=== PATIENT | female | born 1985 | race Native Hawaiian/Other Pacific Islander ===

== ENCOUNTER 2020-01-02 13:12 | Emergency (ER) | payer OTHER, SELFPAY ==
[2020-01-02 13:27] VITALS: BP 117/71; PULSE 64; RESP 14; TEMP 36.9; O2SAT 100; BMI 25.8
--- NOTE | 2020-01-02 13:33 | DI.RAD.S_ITS ---
PROCEDURE: XR RIBS RT MIN 3V W CXR 1V INDICATIONS: eval for Fx rib TECHNIQUE: 3 views of the right ribs were acquired, along with a single view chest. COMPARISON: None. FINDINGS: Surgical changes and devices: None. Bones and chest wall: No fractures or dislocations. No suspicious bony lesions. Overlying soft tissues appear unremarkable. Lungs and pleura: No pleural effusions or pneumothorax. Lungs appear clear. Mediastinum: Mediastinal contours appear normal. Heart size is normal. IMPRESSION: Chest without acute cardiopulmonary abnormalities. No acute rib fractures identified. Dictated by: El Bonds M.D. on 01/02/2020 at 13:06 Approved by: El Bonds M.D. on 01/02/2020 at 13:08
--- NOTE | 2020-01-02 13:33 | DI.RAD.S_ITS ---
PROCEDURE: XR KNEE LT 3V INDICATIONS: pain after fall TECHNIQUE: 3 views of the knee were acquired. COMPARISON: [facility], , KNEE 3V LEFT, 08/17/2014, 12:06. FINDINGS: Bones: No fractures or dislocations. No suspicious bony lesions. Soft tissues: No joint effusion. No suspicious soft tissue calcifications. IMPRESSION: Left knee without acute osseous abnormalities or dislocation. Dictated by: El Bonds M.D. on 01/02/2020 at 13:05 Approved by: El Bonds M.D. on 01/02/2020 at 13:06
--- NOTE | 2020-01-02 14:36 | ED.GENADULT ---
HPI - General Adult General Chief complaint: Extremity Injury, Upper Stated complaint: Poss broken rib/ tear on Lt knee Time Seen by Provider: 01/02/20 13:23 Source: patient Mode of arrival: Ambulatory Limitations: no limitations History of Present Illness HPI narrative: 34-year-old female here for evaluation of right posterior rib pain and also left knee pain. Patient states the end of last week she was participating in martial arts training when she sustained an injury to her right ribs and left knee. She states the symptoms have worsened over the past couple days. She denies any chest pain or problems breathing or fevers or coughing. She is stable to ambulate. She denies any unsteadiness to her left knee. No other injuries reported from the event. Has not tried anything for symptoms prior to arrival. Review of Systems Constitutional Constitutional: Denies fever(s) and Denies headache(s) ENT Ears, Nose, Mouth, and Throat: Denies headache(s) Cardiovascular Cardiovascular: Denies chest pain and Denies dyspnea Respiratory Respiratory: Denies cough and Denies dyspnea Comments: Right posterior rib pain Gastrointestinal Gastrointestinal: Denies nausea and Denies vomiting Musculoskeletal Comments: Left knee pain Integumentary/Breasts Skin/Breast: Denies lesions and Denies rash Neurologic Neurologic: Denies behavioral changes and Denies headache(s) Psychiatric Psychiatric: Denies behavioral changes Hematologic/Lymphatic Hematologic/Lymphatic: Denies easy bleeding and Denies easy bruising Patient History Medical History Healthy adult (Acute) Social History Smoking Status: Former smoker Smoking Status: Former smoker alcohol intake frequency: 0-2 drinks per day Substance Use Type: does not use Exam Initial Vital Signs Initial Vital Signs: Vital Signs Temperature 98.5 F 01/02/20 13:27 Pulse Rate 64 01/02/20 13:27 Respiratory Rate 14 01/02/20 13:27 Blood Pressure 117/71 01/02/20 13:27 Pulse Oximetry 100 01/02/20 13:27 Const General: cooperative, comfortable and well developed Limitations: mental status not altered HENMT Head: normal to inspection and normocephalic Chest Other: Patient does have relatively pinpoint tenderness to palpation on the posterior lower ribs in the right without crepitus. Resp Effort & Inspection: normal respiratory effort Auscultation: clear to auscultation bilaterally Cardio Rate: regular rate Rhythm: regular rhythm Skin Lesions: no lesions Rashes: no rashes Neuro General: patient alert, patient awake and patient oriented x3 Cognition: normal cognition Speech: speech normal Extrem General: capillary refill normal Other: Left leg: ACL MCL PCL and LCL intact functional testing. Patient able to do straight leg raise. She is ambulatory. No tenderness over the patellar quadriceps tendon. No tenderness over the hamstring tendon. She is tender along the medial joint line. Psych Appearance: grossly normal and well kempt Procedures Orthopedic Splinting/Casting Injury #1: Side: left Lower Extremity Injury Location: knee Lower Extremity Immobilizer: Aba wrap Post splinting neuro exam: intact Post splinting vascular exam: intact Placed by: Nursing Course Orders Ordered: ED Orders 01/02/20 13:33 XR knee LT 3V Stat XR ribs RT min 3V w CXR1V Stat Vital Signs Vital signs: Vital Signs - 8 hr 01/02/20 13:27 Temperature 98.5 F Pulse Rate 64 Respiratory Rate 14 Blood Pressure 117/71 Pulse Oximetry 100 Medical Decision Making Imaging Data Extremity x-ray #1: Radiologist's Impression: [address] [address] XRay Report Signed Patient: Emmanuelle aRmirez [facility]#: [id number] : 1985Acct:[id number] Age/Sex: 34 / FDate of Service: 01/02/20 Loc: ED Accession Number: [id number] Procedure: XR knee LT 3V Ordering Provider: Krishna Villagran D.O. PROCEDURE: XR KNEE LT 3V INDICATIONS: pain after fall TECHNIQUE: 3 views of the knee were acquired. COMPARISON: [facility], , KNEE 3V LEFT, 08/17/2014, 12:06. FINDINGS: Bones: No fractures or dislocations. No suspicious bony lesions. Soft tissues: No joint effusion. No suspicious soft tissue calcifications. IMPRESSION: Left knee without acute osseous abnormalities or dislocation. Dictated by: El Bonds M.D. on 01/02/2020 at 13:05 Approved by: El Bonds M.D. on 01/02/2020 at 13:06 X-ray ribs: Radiologist's Impression: [address] [place] [address] XRay Report Signed Patient: Emmanuelle Ramirez [facility]#: [id number] : 1985Acct:[id number] Age/Sex: 34 / FDate of Service: 01/02/20 Loc: ED Accession Number: [id number] Procedure: XR ribs RT min 3V w CXR1V Ordering Provider: Krishna Villagran D.O. PROCEDURE: XR RIBS RT MIN 3V W CXR 1V INDICATIONS: eval for Fx rib TECHNIQUE: 3 views of the right ribs were acquired, along with a single view chest. COMPARISON: None. FINDINGS: Surgical changes and devices: None. Bones and chest wall: No fractures or dislocations. No suspicious bony lesions. Overlying soft tissues appear unremarkable. Lungs and pleura: No pleural effusions or pneumothorax. Lungs appear clear. Mediastinum: Mediastinal contours appear normal. Heart size is normal. IMPRESSION: Chest without acute cardiopulmonary abnormalities. No acute rib fractures identified. Dictated by: El Bonds M.D. on 01/02/2020 at 13:06 Approved by: El Bonds M.D. on 01/02/2020 at 13:08 [facility] Narrative Medical decision making narrative: Rib x-rays are negative. No signs of fracture. Underlying lung unremarkable. She is not in respiratory distress. Lungs are clear. She does have relatively pinpoint tenderness to the right posterior ribs without crepitus. I did discuss this with the patient. Did discuss that there potentially could be a fracture that was nondisplaced. We did discuss return precautions regarding this. Her left knee exam is positive for tenderness along the medial joint line. I feel there is a low suspicion for major ligament damage. She potentially could have a medial meniscus injury. There are no fractures on the x-ray. She was placed in an Aba bandage for comfort. She was given return precautions and follow-up instructions. She expressed understanding and agreement. Discharge Plan Departure Patient Disposition: Home Clinical Impression: Rib pain on right side Left knee sprain Qualifiers: Encounter type: initial encounter Involved ligament of knee: unspecified ligament Qualified Code(s): S83.92XA - Sprain of unspecified site of left knee, initial encounter Instructions: DI for Knee Sprain, How to Apply an Elastic Wrap on Knee Activity Restrictions/Additional Instructions: You have no restrictions on your activities. Contact your primary provider for follow-up. Return to the emergency department for any new or worsening symptoms Referrals: Lou Parry FNP-C [Primary Care Provider] -
== END 2020-01-02 15:02 | disposition home or self-care (01) ==
PROVIDERS: Emergency Provider Emergency Medicine; Family Provider Nurse Practitioner Family; PCP Nurse Practitioner Family
DX: R07.81 Pleurodynia (principal); S83.92XA Sprain of unspecified site of left knee, initial encounter; Y93.75 Activity, martial arts
CPT/HCPCS: 71101; 73562; 99282; 99283

== ENCOUNTER → 2020-05-15 13:15 | Outpatient (CLI) | payer OTHER, SELFPAY ==
[2020-05-15 17:39] LABS: COVID19 -Nasal RAPID Negative (Negative)
== END ==
PROVIDERS: Family Provider Nurse Practitioner Family; PCP Nurse Practitioner Family; Visit Provider Physician Assistant
DX: Z20.822 Contact with and (suspected) exposure to COVID-19 (principal)
CPT/HCPCS: 87635

== ENCOUNTER 2020-05-17 11:45 | Day surgery (SDC) | payer OTHER, SELFPAY ==
[2020-05-17] VITALS (7 sets, daily range): BP systolic 90–121; BP diastolic 58–79; PULSE 63–84; RESP 12–16; TEMP 36.1–36.6; O2SAT 95–98; BMI 27.3
--- NOTE | 2020-05-17 | PATH_ITS ---
[place] Accession Number: [id number] . 01 Material submitted: . body - RANDOM BIOPSIES . 02 Diagnosis: Random Colon, Biopsies: Colonic mucosa with no diagnostic abnormality. Negative for active, chronic, and microscopic colitis. Negative for dysplasia and malignancy. . MRV 05/22/2020 0959 Local . 02 Electronically signed: . Von Aparicio MD, PhD, Pathologist NPI- [id number] . 01 Gross description: . RANDOM BIOPSIES: Received in formalin are multiple fragment(s) of styles, soft tissue measuring 0.1 x 0.1 x 0.1 cm to 0.3 x 0.2 x 0.2 cm submitted entirely in 1 cassette(s) /ERIC 05/19/2020 2318 Local . 02 Pathologist provided ICD-10: R19.7, K62.5 . 02 CPT . 117997 Performed at: 01 [facility] [address] [facility], [place], [place] [id number] MD Dwight Hackett MD Phone: [phone] Performed at: 02 [facility] [address] [place], [place] [id number] MD Amber Reich MD Phone: [phone]
[2020-05-17] MEDS: SODIUM CHLORIDE 0.9% 1,000 ML 100 ML IV (12:33)
--- NOTE | 2020-05-17 12:33 | PM.HP.1 ---
History of Present Illness History of Present Illness Date Patient Seen: 05/17/20 Chief complaint: SDC Narrative: Chronic diarrhea and rectal bleeding Patient History Medical History (Updated 01/17/20 @ 00:00 by ) Healthy adult Family & Social History Social History: household members spouse Tobacco & Substance use: Tobacco type cigarettes Smoking Status Former smoker alcohol intake current alcohol intake frequency holiday/special occasion Substance Use Type does not use Meds Home Medications and Allergies Allergies Allergy/AdvReac Type Severity Reaction Status Date / Time No Known Drug Allergies Allergy Verified 05/17/20 12:23 Exam Vital Signs (past 8 hours): - 05/17/20 12:25 Temperature 97.7 F Pulse Rate 84 Respiratory Rate 14 Blood Pressure 121/79 Pulse Oximetry 98 Oxygen Delivery Method Room Air Narrative Exam Narrative: Oropharynx free of lesions Chest clear to auscultation percussion Cardiac exam reveals no S3 or murmur Assessment & Plan Assessment & Plan narrative: Chronic diarrhea and rectal bleeding, rule out underlying colitis. Risks, benefits, alternatives have been explained.
--- NOTE | 2020-05-17 12:34 | PM.OP.ENDO ---
Operative Date/Time/Diagnoses Date of procedure: 05/17/20 Pre-op diagnosis: See indication and findings Procedure & Clinicians Study performed: Colonoscopy Same procedure as scheduled: Yes Indications: Chronic diarrhea and rectal bleeding Surgeon: Aby Villarreal Procedure Notes Procedure in detail: After informed consent was obtained the patient was placed in left lateral decubitus position. The video colonoscope was introduced the rectum slowly advanced to cecum where the IC valve was identified and intubated.. On slow withdrawal mucosa was carefully examined. The scope was removed. The patient tolerated procedure well. Preparation was good. Blood loss none Complications none Sedation Total sedation time 20 minutes Versed 9 mg fentanyl 200 mg IV titration Findings 1. Normal terminal ileum 2. Normal colonoscopy to cecum. Random biopsies taken to rule out microscopic colitis. Patient should have follow-up telehealth in the office to go over biopsies and decide on next steps.
[2020-05-17] MEDS: fentaNYL 250 MCG/5 ML INJ IV (12:55)
[2020-05-17] MEDS: MIDAZOLAM 5 MG/5 ML VIAL IV (12:56)
== END 2020-05-17 13:50 | disposition home or self-care (01) ==
PROVIDERS: Family Provider Nurse Practitioner Family; PCP Nurse Practitioner Family; Referring Provider Internal Medicine Gastroenterology; Visit Provider Internal Medicine Gastroenterology
PROC: 0DJD8ZZ Inspection of Lower Intestinal Tract, Via Natural or Artificial Opening Endoscopic (ICD-10-PCS; CPT 45378; principal; 2020-05-17 13:00)
DX: K62.5 Hemorrhage of anus and rectum (principal); R19.7 Diarrhea, unspecified
CPT/HCPCS: 45380; J2250; J3010

== ENCOUNTER 2024-02-15 10:16 | Emergency (ER) | payer OTHER, SELFPAY ==
[2024-02-15 10:25] VITALS: BP 114/76; PULSE 60; RESP 18; TEMP 36.8; O2SAT 100; BMI 28.0
--- NOTE | 2024-02-15 11:13 | ED.SKABFB ---
HPI - Skin/Abscess/Foreign Bdy <Yamila Orantes PA-C - Last Filed: 02/15/24 13:21> General Chief complaint: Skin/Abscess/Foreign Body Stated complaint: poss absess left glute, fever, nausea Time Seen by Provider: 02/15/24 10:54 Source: patient Mode of arrival: Ambulatory Limitations: no limitations History of Present Illness HPI narrative: Ms. Ramirez is a very pleasant 38-year-old female with a past medical history of abdominoplasty 2 years ago and hemorrhoids who presents to the emergency department for left-sided rectal pain x1 week. Patient states over the last week she is noticed pain and swelling on the left side of her anus. States over the last 3 days his pain has gotten more severe and is extremely painful whenever sitting or having a bowel movement. Reports subjective fevers and nausea. She occasionally has some left lower quadrant or right upper quadrant abdominal pain as well. Reports she can feel ?a golf ball? sized lump on the left side of her anus. Denies any prior history rectal abscess or drainage. Denies chest pain, shortness of breath, vomiting, dysuria, hematuria, diarrhea, constipation, melena, hematochezia. Her is with her and contributes to the history. Related Data Previous Rx's Medication Instructions Recorded amoxicillin 875 mg-potassium 1 tab PO Q12H 10 days #20 tabs 02/15/24 clavulanate 125 mg tablet ondansetron 4 mg disintegrating 4 mg PO Q8H PRN nausea and 02/15/24 tablet vomiting #14 tabs Allergies Allergy/AdvReac Type Severity Reaction Status Date / Time No Known Drug Allergies Allergy Verified 08/17/20 11:38 Review of Systems <Yamila Orantes PA-C - Last Filed: 02/15/24 13:21> Review of Systems ROS Unobtainable: All systems reviewed & are unremarkable except as noted in HPI and below Patient History <Yamila Orantes PA-C - Last Filed: 02/15/24 13:21> Medical History Healthy adult Social History household members: spouse Smoking Status: Former smoker alcohol intake: current Smoking Status: Former smoker alcohol intake frequency: holidays/special occasions only Alcohol type: wine Exam <Yamila Orantes PA-C - Last Filed: 02/15/24 13:21> Narrative Exam Narrative: GENERAL: 38 year old patient appears stated age. Well-developed patient, in no acute distress. Pain with sitting in stretcher. NECK: Trachea midline. Cervical ROM intact. CARDIOVASCULAR: Regular rate and rhythm. RESPIRATORY: ?Nonlabored respirations. ?Speaking in clear, full sentences. ?Clear to auscultation. Breath sounds equal bilaterally. No wheezes, rales, or rhonchi. ? GASTROINTESTINAL: Abdomen soft, non-tender, nondistended. Normal bowel sounds. Lower abdominal prior abdominoplasty scar. Patient gave verbal consent for external rectal exam. Female nurse sales coordinator present. On the left gluteal cleft there is mild erythema. There is tenderness to palpation of the left side of the anus with palpable fullness / induration approximately 2-3 cm below the skin. No obvious swelling on visualization. No fluctuance. No bleeding or hemorrhoids. EXTREMITIES: No edema or joint tenderness. BACK: Nontender without deformity or crepitance. No flank tenderness. NEURO: AOx3. ?Clear speech. ?Moves all 4 extremities appropriately. Initial Vital Signs Initial Vital Signs: Vital Signs Temperature 98.2 F 02/15/24 10:25 Pulse Rate 60 02/15/24 10:25 Respiratory Rate 18 02/15/24 10:25 Blood Pressure 114/76 02/15/24 10:25 Pulse Oximetry 100 02/15/24 10:25 Oxygen Delivery Method Room Air 02/15/24 10:25 <oT Ornelas MD - Last Filed: 02/15/24 20:03> Initial Vital Signs Initial Vital Signs: Vital Signs Temperature 98.2 F 02/15/24 10:25 Pulse Rate 60 02/15/24 10:25 Respiratory Rate 18 02/15/24 10:25 Blood Pressure 114/76 02/15/24 10:25 Pulse Oximetry 100 02/15/24 10:25 Oxygen Delivery Method Room Air 02/15/24 10:25 Course <Yamila Orantes PA-C - Last Filed: 02/15/24 13:21> Orders Ordered: ED Orders 02/15/24 11:24 CT abdomen pelvis w con Stat 02/15/24 11:30 Complete Blood Count AUTO DIFF Stat Comprehensive Metabolic Panel Stat Lipase Stat Discontinued Medications Amoxicillin/Clavulanate Potassium (Amoxicillin/Clav 875/125 Mg) 1 tab PO NOW ONE Stop: 02/15/24 13:13 Last Admin: 02/15/24 13:27 Dose: 1 tab Documented By: HA Ketorolac Tromethamine (Ketorolac 30 Mg/Ml Vial) 15 mg IV NOW ONE Stop: 02/15/24 11:24 Last Admin: 02/15/24 11:51 Dose: 15 mg Documented By: PERRY Ondansetron HCl (Ondansetron 4 Mg/2 Ml Inj) 4 mg IV NOW ONE Stop: 02/15/24 11:24 Last Admin: 02/15/24 11:50 Dose: 4 mg Documented By: PERRY Consultations Consultation #1: Discussed case with general surgeon Dr. Ornelas while he was in the ED. patient has not yet gone for her CT scan but he recommends I and D close to the anus if abscess, Augmentin, follow up outpatient. I will plan to call him if any signs of concern on the CT. Time: 12:21 Vital Signs Vital signs: Vital Signs - 8 hr 02/15/24 13:33 Pulse Rate 68 Respiratory Rate 18 Blood Pressure 108/71 Pulse Oximetry 99 Oxygen Delivery Method Room Air <To Ornelas MD - Last Filed: 02/15/24 20:03> Orders Ordered: ED Orders 02/15/24 11:24 CT abdomen pelvis w con Stat 02/15/24 11:30 Complete Blood Count AUTO DIFF Stat Comprehensive Metabolic Panel Stat Lipase Stat Discontinued Medications Amoxicillin/Clavulanate Potassium (Amoxicillin/Clav 875/125 Mg) 1 tab PO NOW ONE Stop: 02/15/24 13:13 Last Admin: 02/15/24 13:27 Dose: 1 tab Documented By: HA Ketorolac Tromethamine (Ketorolac 30 Mg/Ml Vial) 15 mg IV NOW ONE Stop: 02/15/24 11:24 Last Admin: 02/15/24 11:51 Dose: 15 mg Documented By: PERRY Ondansetron HCl (Ondansetron 4 Mg/2 Ml Inj) 4 mg IV NOW ONE Stop: 02/15/24 11:24 Last Admin: 02/15/24 11:50 Dose: 4 mg Documented By: PERRY Vital Signs Vital signs: Vital Signs - 8 hr 02/15/24 13:33 Pulse Rate 68 Respiratory Rate 18 Blood Pressure 108/71 Pulse Oximetry 99 Oxygen Delivery Method Room Air MDM - Skin/Abscess/Foreign Bdy <Yamila Orantes PA-C - Last Filed: 02/15/24 13:21> Medical Records Attestation: I reviewed the patient's medical records. Lab Data 02/15/24 11:30 02/15/24 11:30 Labs: Lab Results 02/15/24 Range/Units 11:30 WBC 9.3 (4.5-11.0) X10^3/uL RBC 4.17 (4.0-5.2) X10^6/uL Hgb 13.0 (12.0-16.0) g/dL Hct 37.9 (36-46) % MCV 90.9 (80-100) fL MCH 31.1 (26-34) PG MCHC 34.2 (30-36) % RDW 12.4 (11.6-14.8) % Plt Count 226 (150-400) X10^3/uL Neut % (Auto) 60.3 (50-75) % Lymph % (Auto) 28.9 (25-40) % Greer % (Auto) 7.4 (3-14) % Eos % (Auto) 2.0 (2-4) % Baso % (Auto) 1.4 (0-2) % Neut # (Auto) 5600 (3615-0125) /uL Lymph # (Auto) 2700 (6491-8812) /uL Greer # (Auto) 700 (0-900) /uL Eos # (Auto) 200 (0-450) /uL Baso # (Auto) 100 (0-100) /uL Sodium 139 (137-145) mmol/L Potassium 3.6 (3.4-5.1) mmol/L Chloride 107 (98-107) mmol/L Carbon Dioxide 25 (22-32) mmol/L BUN 9 (7-17) mg/dL Creatinine 0.82 (0.52-1.04) mg/dL Estimated GFR > 60 (>60) mL/min BUN/Creatinine Ratio 11.0 (6-22) Glucose 97 (70-100) mg/dL Calcium 9.0 (8.4-10.2) mg/dL Total Bilirubin 0.6 (0.2-1.3) mg/dL AST 24 (14-36) IU/L ALT 21 (<35) IU/L Alkaline Phosphatase 64 (38-126) U/L Total Protein 7.4 (6.3-8.2) g/dL Albumin 4.3 (3.5-5.0) g/dL Globulin 3.1 (1.7-4.1) g/dL Albumin/Globulin Ratio 1.4 (1.0-2.8) Lipase 29 (23-300) U/L [facility] Narrative Medical decision making narrative: 38-year-old female with a past medical history of abdominoplasty 2 years ago and hemorrhoids who presents to the emergency department for left-sided rectal pain x1 week. Differential diagnosis includes but is not limited to perirectal abscess, gluteal abscess, rectal fistula, diverticulitis, etc. On exam the patient is in no acute distress, nontoxic-appearing, all vital signs within normal limits. Pulse 60 beats per minute O2 100% on room air and temperature 98.2?. She reports subjective feelings of warmth but no documented fever. Physical exam reveals erythema and tenderness to palpation of the left side of the anus with palpable fullness below the skin concerning for a perirectal/perianal abscess. No obvious swelling or cutaneous abscess visible on visualization, only with palpation. Abdomen overall soft and nontender but she does have subjective left lower quadrant and right upper quadrant pain with no reproducible tenderness. We will proceed with abdominal labs and CT abdomen pelvis with IV contrast to further evaluate potential perirectal abscess. We will treat pain with Toradol and nausea with Zofran. Discussed case with general surgeon in the ED who recommended I and D if abscess formation on CT and Augmentin antibiotics. HCG neg. WBC count normal 9.3. Hemoglobin 13.0 hematocrit 37.9. Normal electrolytes and renal function. Normal LFTs. CT abdomen pelvis with IV contrast reveals focal inflammatory change adjacent to the anus on the left which is attributed to advanced cellulitis. Negative for perianal abscess. We will treat perianal cellulitis with Augmentin b.i.d. times 10 days. No abscess on CT or obvious abscess on exam to drain at this time. Recommended warm compress, Sitz baths, antibiotics, Tylenol, ibuprofen. Recommended follow up with PCP with future plans for GI/colonoscopy. Patient verbalized understanding of all information and is stable for discharge home. We discussed very strict ER return precautions. <To Ornelas MD - Last Filed: 02/15/24 20:03> Lab Data Labs: Lab Results 02/15/24 Range/Units 11:30 WBC 9.3 (4.5-11.0) X10^3/uL RBC 4.17 (4.0-5.2) X10^6/uL Hgb 13.0 (12.0-16.0) g/dL Hct 37.9 (36-46) % MCV 90.9 (80-100) fL MCH 31.1 (26-34) PG MCHC 34.2 (30-36) % RDW 12.4 (11.6-14.8) % Plt Count 226 (150-400) X10^3/uL Neut % (Auto) 60.3 (50-75) % Lymph % (Auto) 28.9 (25-40) % Greer % (Auto) 7.4 (3-14) % Eos % (Auto) 2.0 (2-4) % Baso % (Auto) 1.4 (0-2) % Neut # (Auto) 5600 (9342-8083) /uL Lymph # (Auto) 2700 (2845-9585) /uL Greer # (Auto) 700 (0-900) /uL Eos # (Auto) 200 (0-450) /uL Baso # (Auto) 100 (0-100) /uL Sodium 139 (137-145) mmol/L Potassium 3.6 (3.4-5.1) mmol/L Chloride 107 (98-107) mmol/L Carbon Dioxide 25 (22-32) mmol/L BUN 9 (7-17) mg/dL Creatinine 0.82 (0.52-1.04) mg/dL Estimated GFR > 60 (>60) mL/min BUN/Creatinine Ratio 11.0 (6-22) Glucose 97 (70-100) mg/dL Calcium 9.0 (8.4-10.2) mg/dL Total Bilirubin 0.6 (0.2-1.3) mg/dL AST 24 (14-36) IU/L ALT 21 (<35) IU/L Alkaline Phosphatase 64 (38-126) U/L Total Protein 7.4 (6.3-8.2) g/dL Albumin 4.3 (3.5-5.0) g/dL Globulin 3.1 (1.7-4.1) g/dL Albumin/Globulin Ratio 1.4 (1.0-2.8) Lipase 29 (23-300) U/L Discharge Plan Departure Patient Disposition: Home Clinical Impression: Cellulitis of perianal area, Perianal pain Instructions: DI for Cellulitis -- Adult Activity Restrictions/Additional Instructions: Dear Ms. Ramirez, Today you were evaluated for left-sided perianal pain. Your lab work is reassuring. Your CT scan shows focal inflammatory change adjacent to the anus on the left which is attributed to advanced cellulitis. Negative for perianal abscess. I have sent 10 days of antibiotics to your pharmacy. I have also sent nausea medicine if needed. Please complete the full course of antibiotics. Please use warm compresses and Sitz baths to help. Keep the area clean, dry. Please take Ibuprofen (Motrin/Advil) or Acetaminophen (Tylenol) for pain. These are available over the counter. You may take Ibuprofen 600 mg every 8 hours with food for pain. You may also take Acetaminophen 650 mg every 4-6 hours for pain. Do not exceed 3000 mg of Tylenol a day as this can cause liver damage. Do not drink alcohol with either of these medications. Please follow up with your primary care doctor who may recommend further evaluation by GI or General surgery for colonoscopy. Please, if your symptoms do not improve in the next 48 hours or if they worsen return to the ER immediately for repeat evaluation. Please follow up with your primary care doctor within the next 2-3 days for ER follow-up. (If you do not have a PCP you can call [phone]. ?to schedule an appointment with an [facility] Primary Care Provider) IF YOU DEVELOP ANY NEW OR WORSENING SYMPTOMS, RETURN TO THE ER! Please read the attached instructions, they highlight more specific treatments and interventions for you at home. Thank you for letting me participate in your care, Yamila Orantes PA-C Prescriptions: New amoxicillin-pot clavulanate 875-125 mg tablet 1 tab PO Q12H 10 Days Qty: 20 0RF ondansetron 4 mg tablet,disintegrating 4 mg PO Q8H PRN (Reason: nausea and vomiting) Qty: 14 0RF Stand Alone Forms: Patient Portal/API/Survey ED Sign-out <To Ornelas MD - Last Filed: 02/15/24 20:03> Cosign ED Attending Cosignature Attestation: I was immediately available in the department for consultation. This documentation has been reviewed and I agree with assessment and plan. Supervised by To Ornelas MD
--- NOTE | 2024-02-15 11:24 | DI.CT.S_ITS ---
PROCEDURE: CT ABDOMEN PELVIS W CON INDICATIONS: L sided rectal pain concern for abscess TECHNIQUE: After the administration of intravenous contrast, axial sections acquired from the lung bases to the pubic symphysis. Coronal and sagittal reformats were performed. For radiation dose reduction, the following was used: automated exposure control, adjustment of mA and/or kV according to patient size. COMPARISON: None. FINDINGS: Image quality: Diagnostic. Lower Chest: No significant findings. ABDOMEN: Liver: No solid mass. Gallbladder: No radiopaque gallstones or wall thickening. Biliary ducts: No biliary dilation. Pancreas: No ductal dilation. Spleen: Size is within normal limits. Adrenal Glands: No adrenal nodules. Kidneys and Ureters: No hydronephrosis. No solid mass. No complex renal cystic lesion which requires follow up. Stomach and Bowel: Normal colonic caliber, without significant wall thickening. Peritoneum: No abnormal intraperitoneal fluid. No free air. Ventral Wall: No significant ventral hernia. Abdominal Nodes: No retroperitoneal or mesenteric adenopathy by size criteria. Vessels: Aorta and inferior vena cava are normal in size. PELVIS: Pelvic Organs: No adnexal masses are seen on either side. Bladder: No bladder wall thickening, accounting for underdistention. Pelvic Nodes: No enlarged lymph nodes. Miscellaneous: No inguinal hernias are seen. Scrutiny is given to the perianal region. There is mild inflammatory change seen, centered on the left side. However, no soft tissue gas is seen. No focal fluid collection is seen to suggest abscess. Bones: No aggressive osseous abnormality. IMPRESSION: Focal inflammatory change can be seen adjacent to the anus on the left, which is attributed to advanced cellulitis. Negative for perianal abscess. Dictated by: Easton La M.D. on 02/15/2024 at 11:51 Approved by: Easton La M.D. on 02/15/2024 at 11:53
[2024-02-15 11:47] LABS: Add Manual Diff / Slide Review NO; Basophils Absolute Auto 100 /uL (0-100); Basophils Percent Auto 1.4 % (0-2); Eosinophils Absolute Auto 200 /uL (0-450); Hematocrit 37.9 % (36-46); Lymphocytes Absolute Auto 2700 /uL (1100-4500); Lymphocytes Percent Auto 28.9 % (25-40); Mean Corpuscular HGB Conc 34.2 % (30-36); Mean Corpuscular Hemoglobin 31.1 PG (26-34); Mean Corpuscular Volume 90.9 fL (80-100); Monocytes Absolute Auto 700 /uL (0-900); Monocytes Percent Auto 7.4 % (3-14); Neutrophils Absolute Auto 5600 /uL (1500-7000); Neutrophils Percent Auto 60.3 % (50-75); Platelet Count 226 X10^3/uL (150-400); Red Blood Cell Count 4.17 X10^6/uL (4.0-5.2); Red Cell Distribution Width 12.4 % (11.6-14.8); White Blood Cell Count 9.3 X10^3/uL (4.5-11.0)
[2024-02-15] MEDS: ONDANSETRON 4 MG/2 ML INJ IV (11:50)
[2024-02-15] MEDS: KETOROLAC 30 MG/ML VIAL 15 MG IV (11:51)
[2024-02-15 11:56] LABS: Alanine Aminotransferase 21 IU/L (<35); Albumin 4.3 g/dL (3.5-5.0); Albumin Globulin Ratio 1.4 (1.0-2.8); Alkaline Phosphatase 64 U/L (38-126); Aspartate Aminotransferase 24 IU/L (14-36); Bilirubin Total 0.6 mg/dL (0.2-1.3); Blood Urea Nitrogen 9 mg/dL (7-17); Carbon Dioxide 25 mmol/L (22-32); Chloride 107 mmol/L (98-107); Estimated Glomerular Filt Rate > 60 mL/min (>60); Globulin 3.1 g/dL (1.7-4.1); Glucose 97 mg/dL (70-100); HEMOLYSIS < 15 (0-50); Lipase 29 U/L (23-300); Potassium 3.6 mmol/L (3.4-5.1); Sodium 139 mmol/L (137-145); Total Protein 7.4 g/dL (6.3-8.2)
[2024-02-15] MEDS: AMOXICILLIN/CLAV 875/125 MG 1 TAB PO (13:27)
[2024-02-15 13:33] VITALS: BP 108/71; PULSE 68; RESP 18; O2SAT 99
== END 2024-02-15 13:32 | disposition home or self-care (01) ==
PROVIDERS: Emergency Provider Physician Assistant; Family Provider Nurse Practitioner Family
DX: L03.315 Cellulitis of perineum (principal); K62.89 Other specified diseases of anus and rectum
CPT/HCPCS: 74177; 80053; 83690; 85025; 96374; 96375; 99284; J1885; J2405; Q9967

== ENCOUNTER 2024-02-19 10:09 | Emergency (ER) | payer OTHER, SELFPAY ==
[2024-02-19 10:17] VITALS: BP 126/69; PULSE 73; RESP 14; TEMP 36.8; O2SAT 98; BMI 28.0
--- NOTE | 2024-02-19 11:35 | ED.SKABFB ---
HPI - Skin/Abscess/Foreign Bdy <Yamila Orantes PA-C - Last Filed: 02/19/24 19:56> General Chief complaint: Skin/Abscess/Foreign Body Stated complaint: abscess Time Seen by Provider: 02/19/24 11:34 Mode of arrival: Ambulatory History of Present Illness HPI narrative: Ms. Emmanuelle Ramirez is a very pleasant 38-year-old female with a past medical history of abdominoplasty and hemorrhoids who presents to the emergency department for concern of perianal abscess. Patient was in the emergency department and seen by myself on 02/14 for 1 week of left-sided anal pain. At that time patient had reassuring lab work and a CT abdomen pelvis which revealed cellulitis on the left perianal region. She was started on Augmentin. Patient states she overall has been doing well, taking the antibiotics, using warm compresses and yesterday she felt the development of an abscess come to a head and this morning the abscess started draining. States that she has had a little bit of diarrhea and nausea from the antibiotics but otherwise no fevers, chills, systemic symptoms. She presents to the ER for further evaluation of what now appears to be a draining abscess. Related Data Previous Rx's Medication Instructions Recorded amoxicillin 875 mg-potassium 1 tab PO Q12H 10 days #20 tabs 02/15/24 clavulanate 125 mg tablet ondansetron 4 mg disintegrating 4 mg PO Q8H PRN nausea and 02/15/24 tablet vomiting #14 tabs Allergies Allergy/AdvReac Type Severity Reaction Status Date / Time No Known Drug Allergies Allergy Verified 02/19/24 10:17 Review of Systems <Yamila Orantes PA-C - Last Filed: 02/19/24 19:56> Review of Systems ROS Unobtainable: All systems reviewed & are unremarkable except as noted in HPI and below Patient History <Yamila Orantes PA-C - Last Filed: 02/19/24 19:56> Medical History Healthy adult Social History household members: spouse Smoking Status: Former smoker alcohol intake: current Smoking Status: Former smoker alcohol intake frequency: holidays/special occasions only Alcohol type: wine Exam <Yamila Orantes PA-C - Last Filed: 02/19/24 19:56> Narrative Exam Narrative: GENERAL: 38 year old patient appears stated age. Well-developed patient, in no acute distress. HEAD: Atraumatic. Normocephalic. NECK: Trachea midline. Cervical ROM intact. CARDIOVASCULAR: Regular rate and rhythm. RESPIRATORY: ?Nonlabored respirations. ?Speaking in clear, full sentences. ?Clear to auscultation. Breath sounds equal bilaterally. No wheezes, rales, or rhonchi. ? GASTROINTESTINAL: Abdomen soft, non-tender, nondistended. : Patient gave verbal consent for external rectal exam. On the left inner glute adjacent to the anus there is a 1.5 cm area of fluctuance with small amount of active purulent drainage. No surrounding erythema or induration. BACK: Nontender without deformity or crepitance. No flank tenderness. NEURO: AOx3. ?Clear speech. ?Moves all 4 extremities appropriately. Initial Vital Signs Initial Vital Signs: Vital Signs Temperature 98.2 F 02/19/24 10:17 Pulse Rate 73 02/19/24 10:17 Respiratory Rate 14 02/19/24 10:17 Blood Pressure 126/69 02/19/24 10:17 Pulse Oximetry 98 02/19/24 10:17 Oxygen Delivery Method Room Air 02/19/24 10:17 <Katelyn Hooks MD - Last Filed: 02/20/24 08:32> Initial Vital Signs Initial Vital Signs: Vital Signs Temperature 98.2 F 02/19/24 10:17 Pulse Rate 73 02/19/24 10:17 Respiratory Rate 14 02/19/24 10:17 Blood Pressure 126/69 02/19/24 10:17 Pulse Oximetry 98 02/19/24 10:17 Oxygen Delivery Method Room Air 02/19/24 10:17 Procedures <Yamila Orantes PA-C - Last Filed: 02/19/24 19:56> Abscess I/D I&D #1: Time of procedure: 13:15 Site: loyda-rectal (left gluteal crease) Local Anesthetic: lidocaine 1% and with epi Amount of anesthesia used (mL): 3 Technique: incised with #11 blade Amount of fluid expressed (mL): 3 Irrigation: Yes Packing used?: iodoform Course <Yamila Orantes PA-C - Last Filed: 02/19/24 19:56> Orders Ordered: Discontinued Medications Ibuprofen (Ibuprofen 400 Mg Tablet) 400 mg PO NOW ONE Stop: 02/19/24 12:03 Last Admin: 02/19/24 12:08 Dose: 400 mg Documented By: PERRY Lidocaine/Epinephrine (Lidocaine 1% W/Epi 20ml) 4 ml INJ INTRA-OP ONE Stop: 02/19/24 12:03 Oxycodone/Acetaminophen (Oxycodone/Acetaminophen 5/325 Tablet) 1 tab PO NOW ONE Stop: 02/19/24 12:03 Last Admin: 02/19/24 12:08 Dose: 1 tab Documented By: PERRY Vital Signs Vital signs: Vital Signs - 8 hr 02/19/24 13:47 Temperature 98.3 F Pulse Rate 73 Respiratory Rate 14 Blood Pressure 128/69 Pulse Oximetry 98 Oxygen Delivery Method Room Air <Katelyn Hooks MD - Last Filed: 02/20/24 08:32> Orders Ordered: Discontinued Medications Ibuprofen (Ibuprofen 400 Mg Tablet) 400 mg PO NOW ONE Stop: 02/19/24 12:03 Last Admin: 02/19/24 12:08 Dose: 400 mg Documented By: MPO Lidocaine/Epinephrine (Lidocaine 1% W/Epi 20ml) 4 ml INJ INTRA-OP ONE Stop: 02/19/24 12:03 Oxycodone/Acetaminophen (Oxycodone/Acetaminophen 5/325 Tablet) 1 tab PO NOW ONE Stop: 02/19/24 12:03 Last Admin: 02/19/24 12:08 Dose: 1 tab Documented By: PERRY Vital Signs Vital signs: Vital Signs - 8 hr 02/19/24 13:47 Temperature 98.3 F Pulse Rate 73 Respiratory Rate 14 Blood Pressure 128/69 Pulse Oximetry 98 Oxygen Delivery Method Room Air MDM - Skin/Abscess/Foreign Bdy <Yamila Orantes PA-C - Last Filed: 02/19/24 19:56> Medical Records Attestation: I reviewed the patient's medical records. MDM Narrative Medical decision making narrative: 38-year-old female with a past medical history of abdominoplasty and hemorrhoids who presents to the emergency department for concern of perianal abscess. contributes to the history. Differential diagnosis includes but is not limited to perianal abscess, perirectal abscess, cellulitis, etc. On exam the patient is in no acute distress, nontoxic-appearing, all vital signs within normal limits. I saw her on 02/15/2024 and started her on Augmentin for perianal cellulitis. Since then she has developed an abscess head with active drainage. Physical exam reveals improved cellulitis now with a small fluctuant abscess with some drainage. After shared decision-making with the patient we will proceed with I&D. We will premedicate with ibuprofen and oxycodone-acetaminophen. Discussed case with the attending physician Dr. Hooks. Proceeded with I and D, patient consented to procedure. Area was cleansed, anesthetized, incised with a 11 blade, minimal amount of purulent drainage was cultured, wound was de loculated, irrigated, approximately 3 cm of iodoform packing placed, sterile nonadherent dressing applied. Patient tolerated procedure well. Recommended wound check in 48 hours if any concerns. Did discuss that packing may come out on its own or patient may remove it herself. We will provide patient with general surgery follow up. We will have patient complete full course of Augmentin as it appears to be helping however she understands she will be called if wound culture requires different antibiotic. Discussed signs and symptoms to return to ER for. Patient verbalized understanding of all information and is stable for discharge home. Discharge Plan Departure Patient Disposition: Home Clinical Impression: Perianal abscess Instructions: DI for Skin Abscess Activity Restrictions/Additional Instructions: Dear Ms. Ramirez, Today we performed an incision and drainage of an abscess on the left side of your anus/gluteal crease. A small amount of packing was placed. This packing may fall out on its own or you may remove it. Please return to the ER in 48 hours for wound recheck if your symptoms are not improving or you need the packing removed. After having a bowel movement, please wash the area with antibacterial bar soap or Hibiclens body wash. Complete the full course of previously prescribed antibiotics. You will be called in 3 days if your wound culture results warrant a new antibiotic. Return to the ER immediately if you develop fevers, chills, worsening pain, redness spreading on the left glute, any other concern. Otherwise please follow up with your PCP. Please call to schedule an appointment with [facility] at [phone] for follow up. You may follow up with Dr. Ornelas or one of the other surgeons. Please follow up with your primary care doctor within the next 2-3 days for ER follow-up. (If you do not have a PCP you can call [phone]. ?to schedule an appointment with an [facility] Primary Care Provider) IF YOU DEVELOP ANY NEW OR WORSENING SYMPTOMS, RETURN TO THE ER! Please read the attached instructions, they highlight more specific treatments and interventions for you at home. Thank you for letting me participate in your care, Yamila Orantes PA-C Prescriptions: No Action amoxicillin-pot clavulanate 875-125 mg tablet 1 tab PO Q12H 10 Days Qty: 20 0RF ondansetron 4 mg tablet,disintegrating 4 mg PO Q8H PRN (Reason: nausea and vomiting) Qty: 14 0RF Stand Alone Forms: Patient Portal/API/Survey ED Sign-out <Katelyn Hooks MD - Last Filed: 02/20/24 08:32> Cosign ED Attending Neginature Attestation: I was immediately available in the department for consultation throughout this patient's visit. Katelyn Hooks MD
[2024-02-19] MEDS: IBUPROFEN 400 MG TABLET PO (12:08)
[2024-02-19] MEDS: OXYCODONE/ACETAMINOPHEN 5/325 TABLET 1 TAB PO (12:08)
[2024-02-19 13:47] VITALS: BP 128/69; PULSE 73; RESP 14; TEMP 36.8; O2SAT 98
== END 2024-02-19 13:47 | disposition home or self-care (01) ==
PROVIDERS: Emergency Provider Physician Assistant; Family Provider Nurse Practitioner Family
DX: K61.0 Anal abscess (principal)
CPT/HCPCS: 46050; 87070; 87075; 87077; 87205; 99283

== ENCOUNTER 2024-03-29 08:20 | Day surgery (SDC) | payer OTHER, SELFPAY ==
[2024-03-29 08:50] VITALS: BP 109/74; PULSE 75; RESP 16; TEMP 36.6; O2SAT 96
[2024-03-29] MEDS: SODIUM CHLORIDE 0.9% 1,000 ML 84 ML IV (09:09)
--- NOTE | 2024-03-29 09:49 | PM.PREOP ---
Pre-operative Note COVID-19 COVID-19 status: Not tested Interval Note History & Physical reviewed/Exam performed by Physician: Yes Changes to H&P: No
--- NOTE | 2024-03-29 10:10 | P.OP.COLON_ITS ---
Operative Date/Time/Diagnoses Date of procedure: 03/29/24 Time of procedure: 10:10 Pre-op diagnosis: Blood per rectum Post-op diagnosis: same (Internal hemorrhoids with bleeding) Procedure & Clinicians Study performed: Colonoscopy, anoscopy with rubber-band ligation internal hemorrhoids x2 Same procedure as scheduled: Yes Indications: Blood per rectum Surgeon: Jamal Ornelas Procedure Notes SCOAP/Timeout: Performed Procedure in detail: Time-out was performed. Mac was induced. Patient was placed in left lateral decubitus position. The perineum was inspected without any gross abnormality. Lubricated pediatric colonoscope was inserted and advanced to the cecum. The terminal ileum was intubated. The colonoscope was withdrawn slowly inspecting the circumference of the colon. Very small polyps may have been missed, prep quality was adequate. Retroflexed view of the rectum showed moderate size prolapsed bleeding internal hemorrhoids. Anoscope was inserted and a the most prominent hemorrhoid was left lateral quadrant, and suctioned polypectomy was performed. Next most prominent hemorrhoid was right lateral and another bandage applied. The scope was withdrawn the patient was taken to PACU in good c ondition. Scope withdrawal time: 9 Sedation minutes: 13 Findings: internal hemorrhoids Specimen(s): none sent Complications: none Post-procedure Recommendations: Colonoscopy in 10 years and High fiber diet Follow up: as needed Disposition: PACU
[2024-03-29 10:16] VITALS: BP 86/58; PULSE 60; RESP 11; TEMP 36.1; O2SAT 99
[2024-03-29 10:22] VITALS: BP 97/62; PULSE 61; RESP 17; O2SAT 99
[2024-03-29 10:25] VITALS: BP 106/68; PULSE 51; RESP 10; TEMP 36.4; O2SAT 99
== END 2024-03-29 10:50 | disposition home or self-care (01) ==
PROVIDERS: Family Provider Nurse Practitioner Family; PCP Nurse Practitioner Family; Referring Provider Surgery; Visit Provider Surgery
PROC: 0DJD8ZZ Inspection of Lower Intestinal Tract, Via Natural or Artificial Opening Endoscopic (ICD-10-PCS; CPT 45378; principal; 2024-03-29 09:30)
DX: K64.8 Other hemorrhoids (principal)
CPT/HCPCS: 46221; 81025; J2704